=== PATIENT | female | born 1955 | race Caucasian/White ===

== ENCOUNTER 2016-06-13 07:10 | Inpatient (IN) | payer BC ==
[2016-06-13] VITALS (10 sets, daily range): BP systolic 110–139; BP diastolic 65–91
[~2016-06-13] VITALS: Ht 188 cm; Wt 79.5 kg
[2016-06-13] MEDS ORDERED: ADENOSINE 6 MG/2 ML VIAL IV ONE ×3 (07:21→08:00)
[2016-06-13] MEDS ORDERED: IV NORMAL SALINE 1000ML BAG 1,000 ML IV SCH (07:24)
[2016-06-13] MEDS ORDERED: DILTIAZEM IV PUSH 25 MG/5 ML VIAL. IVP ONE ×2 (07:30→08:30)
[2016-06-13] MEDS ORDERED: DILTIAZEM 125 MG in IV DEXTROSE 5% 100 ML IV ONE (07:30)
[2016-06-13 07:37] LABS: BASO # 0.1 x10^3/uL (0.0-0.2); BASO % 1 % (0-3); EOS % 2 % (0-3); HEMATOCRIT 43.4 % (36.0-47.0); HEMOGLOBIN 14.2 g/dL (12.0-15.5); LYMPH # 2.6 x10^3/uL (1.0-4.8); LYMPH % 35 % (24-48); MEAN CORPUSCULAR HEMOGLOBIN 31 pg (25-35); MEAN CORPUSCULAR HGB CONC 33 g/dL (31-37); MEAN CORPUSCULAR VOLUME 94 fL (79-100); MONO % 10 % (0-9); NEUT % 53 % (31-73); PLATELET COUNT 299 x10^3/uL (140-400); RED BLOOD COUNT 4.63 x10^6/uL (3.50-5.40); WHITE BLOOD COUNT 7.6 x10^3/uL (4.0-11.0)
--- NOTE | 2016-06-13 07:47 | PHYS DOC ---
Past Medical History Past Medical History: Depression, GERD, High Cholesterol, Hypertension, Other Additional Past Medical Histor: heart murmur Past Surgical History: Knee Replacement, Other Additional Past Surgical Histo: R knee, L rotator cuff Alcohol Use: Heavy Drug Use: None Adult General Chief Complaint Chief Complaint: MULTIPLE COMPLAINTS HPI HPI Patient is a 61 year old female who presents with palpitations, slight shortness of breath and lightheadedness since waking this morning around 6:15 AM. States she has never felt this way before. She denies recent illness, stimulant use, caffeine use, [id number] medication use other than ibuprofen. States she has not taken her home medications this morning. She denies chest pain, headache, vision changes, dizziness, nausea or vomiting, abdominal pain, diarrhea, dysuria, fever or chills. Review of Systems Review of Systems Constitutional: Denies fever or chills [] Eyes: Denies change in visual acuity, redness, or eye pain [] HENT: Denies nasal congestion or sore throat [] Respiratory: Denies cough [] Cardiovascular: No additional information not addressed in HPI [] GI: Denies abdominal pain, nausea, vomiting, bloody stools or diarrhea [] : Denies dysuria or hematuria [] Musculoskeletal: Denies back pain or joint pain [] Integument: Denies rash or skin lesions [] Neurologic: Denies headache, focal weakness or sensory changes [] Endocrine: Denies polyuria or polydipsia [] Current Medications Current Medications Current Medications Medications (Trade) Dose Ordered Sig/[facility] Start Time Stop Time Status Last Admin Dose Admin Adenosine 6 mg 6 mg 1X ONCE 06/13/16 07:30 06/13/16 07:31 DC 06/13/16 07:46 6 MG Diltiazem HCl (Cardizem) 20 mg 1X ONCE 06/13/16 07:30 06/13/16 07:31 DC 06/13/16 07:39 20 MG Diltiazem HCl 125 mg/Dextrose 125 ml @ 10 mls/hr 1X ONCE 06/13/16 07:30 06/13/16 19:59 06/13/16 07:42 10 MLS/HR Sodium Chloride (Iv Sodium Chloride 0.9% 1000ml Bag) 1,000 ml @ 1,000 mls/hr Q1H 06/13/16 07:24 06/13/16 08:23 DC 06/13/16 07:40 1,000 MLS/HR Allergies Allergies Allergies Coded Allergies Type Severity Reaction Last Updated Verified Sulfa (Sulfonamide Antibiotics) Allergy Intermediate hives 06/13/16 Yes Physical Exam Physical Exam Constitutional: Well developed, well nourished, no acute distress, non-toxic appearance. [] HENT: Normocephalic, atraumatic, bilateral external ears normal, oropharynx moist, nose normal. [] Eyes: PERRLA, EOMI. [] Neck: Normal range of motion, supple. [] Cardiovascular: Irregular tachycardia [] Lungs & Thorax: Bilateral breath sounds clear to auscultation [] Abdomen: Bowel sounds normal, soft, no tenderness. [] Skin: Warm, dry, no erythema, no rash. [] Back: Normal range of motion. [] Extremities: No tenderness, ROM intact, no edema, no palpable cord. [] Neurologic: Alert and oriented X 3, normal motor function, normal sensory function, no focal deficits noted. [] Psychologic: Affect normal, judgement normal, mood normal. [] Current Patient Data Vital Signs Vital Signs Date Time Temp Pulse Resp B/P Pulse Ox O2 Delivery O2 Flow Rate FiO2 06/13/16 07:15 97.1 211 18 150/113 99 Room Air 97.1 Lab Values Laboratory Tests Test 06/13/16 07:25 White Blood Count 7.6x10^3/uL (4.0-11.0) Red Blood Count 4.63x10^6/uL (3.50-5.40) Hemoglobin 14.2g/dL (12.0-15.5) Hematocrit 43.4% (36.0-47.0) Mean Corpuscular Volume 94fL (79-100) Mean Corpuscular Hemoglobin 31pg (25-35) Mean Corpuscular Hemoglobin Concent 33g/dL (31-37) Red Cell Distribution Width 13.0% (11.5-14.5) Platelet Count 299x10^3/uL (140-400) Neutrophils (%) (Auto) 53% (31-73) Lymphocytes (%) (Auto) 35% (24-48) Monocytes (%) (Auto) 10% (0-9) H Eosinophils (%) (Auto) 2% (0-3) Basophils (%) (Auto) 1% (0-3) Neutrophils # (Auto) 4.0x10^3uL (1.8-7.7) Lymphocytes # (Auto) 2.6x10^3/uL (1.0-4.8) Monocytes # (Auto) 0.8x10^3/uL (0.0-1.1) Eosinophils # (Auto) 0.1x10^3/uL (0.0-0.7) Basophils # (Auto) 0.1x10^3/uL (0.0-0.2) Sodium Level 140mmol/L (136-145) Potassium Level 3.9mmol/L (3.5-5.1) Chloride Level 102mmol/L (98-107) Carbon Dioxide Level 21mmol/L (21-32) Anion Gap 17 (6-14) H Blood Urea Nitrogen 11mg/dL (7-20) Creatinine 1.0mg/dL (0.6-1.0) Estimated GFR (Cockcroft-Gault) 56.0 Glucose Level 152mg/dL (70-99) H Calcium Level 9.7mg/dL (8.5-10.1) Magnesium Level 1.7mg/dL (1.8-2.4) L Troponin I Quantitative < 0.017ng/mL (0.000-0.055) FL-Hnq-S-Type Natriuretic Peptide 97pg/mL (0-124) Laboratory Tests 06/13/16 07:25 Laboratory Tests 06/13/16 07:25 EKG EKG EKG as interpreted by me as A. fib with rapid ventricular rate, rate 199, at 0719 EKG as interpreted by me as A. fib with rapid ventricular rate, rate 143, no ST- T changes, at 0747 Radiology/Procedures Radiology/Procedures Chest xray as interpreted by me with no acute cardiopulmonary disease process Course & Med Decision Making Course & Med Decision Making Pertinent Labs and Imaging studies reviewed. (See chart for details) Patient presented with A. fib with RVR that was in the 190s and 200s. Vagal maneuvers failed to slow the rate. Adenosine 6 mg IV followed by adenosine 12 mg IV failed to slow rate other than very brief episode. She was then given Cardizem bolus and placed on Cardizem drip for rate control. Symptoms improved with rate control. Workup is otherwise unremarkable. Discussed case with Dr. Calloway, who will admit. Discussed case with ESHA Bettencourt cardiology, who recommends addition of Digoxin IV 250mcg as her rate is still in 140s-150s. Dragon Disclaimer Dragon Disclaimer This electronic medical record was generated, in whole or in part, using a voice recognition dictation system. Critical Care Time Critical care time was 40 minutes exclusive of procedures. Departure Departure Impression: Primary Impression: Atrial fibrillation with RVR Disposition: ADMITTED INPATIENT Condition: CRITICAL Stef VITAL MD Jun 13, 2016 07:47
[2016-06-13 07:48] LABS: CALCIUM 9.7 mg/dL (8.5-10.1); POTASSIUM 3.9 mmol/L (3.5-5.1)
[2016-06-13 07:49] LABS: MAGNESIUM 1.7 mg/dL (1.8-2.4)
--- NOTE | 2016-06-13 08:12 | RAD ---
Portable chest, 06/13/2016: History: Chest pain, palpitations The heart size and pulmonary vascularity are normal. No pulmonary infiltrates are seen. There is no evidence of pleural fluid. IMPRESSION: No acute cardiopulmonary abnormality is detected.
--- NOTE | 2016-06-13 08:27 | EKG ---
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
[2016-06-13] MEDS ORDERED: ONDANSETRON PF 4 MG/2 ML VIAL. IV PRN ×2 (08:30→10:35)
[2016-06-13] MEDS ORDERED: ACETAMINOPHEN 325 MG TABLET. PO PRN (08:30)
[2016-06-13] MEDS ORDERED: DIGOXIN 500 MCG/2 ML AMPUL. IV ONE (09:15)
--- NOTE | 2016-06-13 09:24 | ACF ---
Admit Criteria Forms Admit Criteria Forms Admit Criteria Forms ATRIAL FIBRILLATION Clinical Indications for Admission to Inpatient Care (Place 'X' for any and all applicable criteria): Admission indicated for ANY ONE of the following(1)(2)(3)(4)(5) : [ ]I. Myocardial ischemia [ ]II. Dyspnea or hypoxemia [ ]III. Hemodynamic instability [ ]IV. Heart failure (e.g., pulmonary edema) (7) [X]V. New-onset (less than 48 hours) atrial fibrillation with high risk for causing complications secondary to comorbidities (eg, symptomatic heart failure ) [ ]. Altered mental status [ ]VII. Syncope [ ]VIII. Patient has implantable cardioverter defibrillator that has fired more than once within past 24hr or needs immediate adjustment of settings that cannot be done other than in inpatient setting. (8) [ ]IX. Suspected accessory pathway (e.g., Dlffy-Psmidzhup-Xvmjy syndrome) on ECG [ ]X. Recent systemic thromboembolism (eg, stroke) [ ]XI. Medication toxicity (e.g., digitalis) causing arrhythmia(9) [ ]XII. Underlying medical condition that necessitates inpatient care (e.g., thyrotoxicosis, pneumonia) (10) [ ]XIII. Continuous ECG monitoring is required for condition causing arrhythmia (e.g., severe hyperkalemia, hypokalemia, acid-base disturbance).(11)(12)(13) [ ]XIV. Initiation of antiarrhythmic drug therapy is needed in patient at high risk of adverse effects as indicated by ANY ONE of the following: [ ]a) Significant structural heart disease (e.g., reduced ejection fraction, congenital heart disease, valvular heart disease) [ ]b) Prolonged QT interval [ ]c) Underlying sinus node or atrioventricular conduction disturbances [ ]d) Need for treatment with antiarrhythmic drugs that have significant proarrhythmic potential (e.g., dofetilide, sotalol, procainamide) [ ]e) Patient whose sinus rhythm has never been observed on ECG [ ]XV. Intolerable symptoms despite optimal outpatient treatment [ ]XVI. Elective or urgent cardioversion that cannot be performed on outpatient basis or during observation care. [A] (Use also Atrial Fibrillation: Observation Care ) as appropriate.(14) [ ]XVII.Contraindications and/or Inappropriate clinical situations for Observational Care in patients with Atrial Fibrillation, when ANY ONE of the following is required: [ ]a) Patient with High risk of cardiac embolism (e.g, patients with previous cardiac embolism, LVEF < 40%, age >75 and patients with prosthetic valve) 18 [ ]b) Patient with Moderate risk including DM patient, CAD and patient aged 65-75 18 [ ]c) Patient with any change in cardiac biomarker especially troponin should be managed as high risk in an inpatient setting 19 [ ]d) Physician judgement irrespective of ECG and other diagnostic findings 20 [ ]XVIII.General contraindications and/or Inappropriate clinical situations for Observational Care in patients with Atrial Fibrillation, when ANY ONE of the following is required: [ ]a) Prediction of prolongation of LOS based on ANY ONE of the following may be considered as a contraindication for observational care 2, 3, 4, 5, 6, 7, 8, 9, 10, 11 [ ]i) Age > 65 yrs. [ ]ii) Patient arriving by ambulance [ ]iii) Patient with high acuity [ ]iv) Patient requiring vital sign monitoring [ ]v) Patient on IV medication [ ]b) Systolic blood pressures 180mmHg 3,12 [ ]c) Patient with altered mental status including delirium and other alteration of consciousness3 [ ]d) Patient whose discharge disposition will be to a custodial home or rehabilitation home should not be managed in Emergency Department Observation Unit. CMS rule requires 3 days hospital stay before such placement.3,13 [ ]e) Patient with failure to thrive due to broad array of etiologies 3,16,17 [ ]f) Inability to ambulate 3,14 Extended stay beyond goal length of stay may be needed for (1)(25)(26): [ ]a) Unstable comorbidities [ ]b) Persistently uncontrolled atrial fibrillation or other arrhythmias [ ]c) Acute thromboembolic event (e.g., stroke, limb ischemia) [ ]d) Need for inpatient attainment of full anticoagulation The original [employer] content created by [employer] has been revised. The portions of the content which have been revised are identified through the use of italic text or in bold, and [employer] has neither reviewed nor approved the modified material. All other unmodified content is copyright [employer]. Please see references footnoted in the original [employer] edition 2015 AROLDO ALAMO Jun 13, 2016 09:24
--- NOTE | 2016-06-13 09:31 | PDOC2 ---
CARLEE LOFTON FISCAL ASSISTANT 06/13/16 0931: CARDIAC CONSULT DATE OF CONSULT Date of Consult DATE: 06/13/16 TIME: 09:29 REASON FOR CONSULT Reason for Consult: AFIB with RVR REFERRING PHYSICIAN Referring Physician: Dr. Rangel SOURCE Source: Chart review, Patient HISTORY OF PRESENT ILLNESS HISTORY OF PRESENT ILLNESS This is a 61 yo female who presented with complaints of shortness of breath and palpitations. Patient reports palpitations began upon awakening this morning. Denies any chest pain, diaphoresis, n/v, LE edema, orthopnea, TERRELL, or recent illness/fevers. Reports she began to feel lightheaded, anxious, and weak ; knew something was wrong. Drove herself to emergency room. Noted in AFIB with RVR upon arrival. Given adenosine 6mg followed by additional 12mg without relief. Cardizem 20mg bolus x 2 and start on Cardizem gtt. Rate remained elevated; Digoxin IV bolus given. Rate presently 120-160; patient asymptomatic. PAST MEDICAL HISTORY Cardiovascular: HTN, Hyperlipidemia, Other (murmur ) GI: GERD Heme/Onc: No pertinent hx Hepatobiliary: No pertinent hx Psych: No pertinent hx Musculoskeletal: Osteoarthritis Rheumatologic: No pertinent hx Infectious disease: No pertinent hx ENT: No pertinent hx Renal/: No pertinent hx Endocrine: No pertinent hx Dermatology: No pertinent hx PAST SURGICAL HISTORY Past Surgical History: Total knee replacement (right ), Other (left rotator cuff sx) FAMILY HISTORY Family History: Coronary Artery Disease, Hypertension SOCIAL HISTORY Smoke: No ALCOHOL: none Drugs: None Lives: with Family CURRENT MEDICATIONS CURRENT MEDICATIONS Current Medications Medications (Trade) Dose Ordered Sig/Dianna Route PRN Reason Start Time Stop Time Status Last Admin Dose Admin Diltiazem HCl (Cardizem) 20 mg 1X ONCE IVP 06/13/16 07:30 06/13/16 07:31 DC 06/13/16 07:39 Adenosine 6 mg 6 mg 1X ONCE IV 06/13/16 07:30 06/13/16 07:31 DC 06/13/16 07:46 Diltiazem HCl 125 mg/Dextrose 125 ml @ 10 mls/hr 1X ONCE IV 06/13/16 07:30 06/13/16 19:59 06/13/16 07:42 Sodium Chloride (Iv Sodium Chloride 0.9% 1000ml Bag) 1,000 ml @ 1,000 mls/hr Q1H IV 06/13/16 07:24 06/13/16 08:23 DC 06/13/16 07:40 Adenosine (Adenocard) 12 mg 1X ONCE IV 06/13/16 08:00 06/13/16 08:01 DC 06/13/16 07:50 Diltiazem HCl (Cardizem) 20 mg 1X ONCE IVP 06/13/16 08:30 06/13/16 08:31 DC 06/13/16 08:35 ALLERGIES ALLERGIES: Coded Allergies: Sulfa (Sulfonamide Antibiotics) (Verified Allergy, Intermediate, hives, ) ROS Review of System 14 point ROS conducted with pertinent positives noted above in HPI PHYSICAL EXAM General: Alert, Oriented X3, Cooperative, No acute distress HEENT: Atraumatic, Mucous membr. moist/pink Lungs: Clear to auscultation, Normal air movement Heart: Normal S1, Normal S2, Other (2/6 systolic murmur. Tele AFIB rate 120- 160. ) Abdomen: Soft, No tenderness Extremities: No edema, Normal pulses Skin: No significant lesion Neuro: Normal speech, Sensation intact Psych/Mental Status: Mental status NL, Mood NL MUSCULOSKELETAL: Osteoarthritic changes both hands VITALS VITALS Vital Signs Date Time Temp Pulse Resp B/P Pulse Ox O2 Delivery O2 Flow Rate FiO2 06/13/16 08:35 163 157/85 06/13/16 07:15 97.1 18 99 Room Air 97.1 LABS Lab: Laboratory Tests Test 06/13/16 07:25 White Blood Count 7.6x10^3/uL (4.0-11.0) Red Blood Count 4.63x10^6/uL (3.50-5.40) Hemoglobin 14.2g/dL (12.0-15.5) Hematocrit 43.4% (36.0-47.0) Mean Corpuscular Volume 94fL (79-100) Mean Corpuscular Hemoglobin 31pg (25-35) Mean Corpuscular Hemoglobin Concent 33g/dL (31-37) Red Cell Distribution Width 13.0% (11.5-14.5) Platelet Count 299x10^3/uL (140-400) Neutrophils (%) (Auto) 53% (31-73) Lymphocytes (%) (Auto) 35% (24-48) Monocytes (%) (Auto) 10% (0-9) Eosinophils (%) (Auto) 2% (0-3) Basophils (%) (Auto) 1% (0-3) Neutrophils # (Auto) 4.0x10^3uL (1.8-7.7) Lymphocytes # (Auto) 2.6x10^3/uL (1.0-4.8) Monocytes # (Auto) 0.8x10^3/uL (0.0-1.1) Eosinophils # (Auto) 0.1x10^3/uL (0.0-0.7) Basophils # (Auto) 0.1x10^3/uL (0.0-0.2) Sodium Level 140mmol/L (136-145) Potassium Level 3.9mmol/L (3.5-5.1) Chloride Level 102mmol/L (98-107) Carbon Dioxide Level 21mmol/L (21-32) Anion Gap 17 (6-14) Blood Urea Nitrogen 11mg/dL (7-20) Creatinine 1.0mg/dL (0.6-1.0) Estimated GFR (Cockcroft-Gault) 56.0 Glucose Level 152mg/dL (70-99) Calcium Level 9.7mg/dL (8.5-10.1) Magnesium Level 1.7mg/dL (1.8-2.4) Troponin I Quantitative < 0.017ng/mL (0.000-0.055) TV-Dbo-F-Type Natriuretic Peptide 97pg/mL (0-124) ASSESSMENT/PLAN ASSESSMENT/PLAN 1. Atrial fibrillation with RVR 2. Hypertension 3. Hyperlipidemia 4. Hypomagnesemia 5. GERD Recommendations Obtain echo check TSH, lipids replace MG Lovenox for stroke prophylaxis Given persistent RVR despite aggressive medical therapy, consider PAULO with CV- will d/w primary cardiology. Further recommendations pending diagnostics. Problems: INA SPEAR MD 06/14/16 0020: CARDIAC CONSULT ALLERGIES ALLERGIES: Coded Allergies: Sulfa (Sulfonamide Antibiotics) (Verified Allergy, Intermediate, hives, ) ASSESSMENT/PLAN ASSESSMENT/PLAN Late entry for 06/13/2016 Pt. seen and examined. Agree with above RUNNER OUT note. 61 y.o with persistent rapid afib. On exam she is hemodynamically stable. Labs/meds reviewed. In light of persistent tachy at HR > 150 despite high dose rate control agents, after discussion of risks/benefits, patient was cardioverted to SR after PAULO confirmed no evidence of ÁNGELA thrombus. Eliquis for short term 3 month stroke prophylaxis. outpt event monitor. Likely DC in a.m. from CV perspective if no recurrence of afib. Problems: CARLEE LOFTON APRN Jun 13, 2016 09:31 INA SPEAR MD Jun 14, 2016 00:20
--- NOTE | 2016-06-13 10:41 | EKG ---
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
[2016-06-13] MEDS ORDERED: CITA40TA12 PO (10:57)
[2016-06-13] MEDS ORDERED: IBUP800T2 PO (10:57)
[2016-06-13] MEDS ORDERED: OMEP40CA5 PO (10:57)
[2016-06-13] MEDS ORDERED: LISI-334 PO (10:57)
[2016-06-13] MEDS ORDERED: SIMV40TA3 PO (10:57)
[2016-06-13] MEDS ORDERED: MAGNESIUM SULFATE 2GM 50 ML IV ONE (11:00)
[2016-06-13] MEDS ORDERED: ENOXAPARIN ** NOTE DOSE ** SYRINGE SQ STA (11:47)
--- NOTE | 2016-06-13 11:59 | CARD ---
APPROVED REPORT EXAM: Two-dimensional and M-mode echocardiogram with Doppler and color Doppler. Other Information Quality : Good Rhythm : Atrial Fibrillation INDICATION New onset- Atrial fibrillation RISK FACTORS Hypertension 2D DIMENSIONS RVDd2.5 (2.9-3.5cm)Left Atrium(2D)4.0 (1.6-4.0cm) IVSd1.2 (0.7-1.1cm)Aortic Root(2D)2.7 (2.0-3.7cm) LVDd3.5 (3.9-5.9cm)LVOT Diameter2.4 (1.8-2.4cm) PWd0.7 (0.7-1.1cm)LVDs2.4 (2.5-4.0cm) FS (%) 31.0 %SV31.3 ml LVEF(%)59.7 (>50%) Aortic Valve AoV Peak Hebert.177.1cm/sAoV VTI25.7cm AO Peak GR.12.5mmHgLVOT Peak Hebert.144.2cm/s AO Mean GR.7mmHgAVA (VMAX)3.73cm2 Mitral Valve MV E Peak Gr.7mmHg Pulmonary Valve PV Peak Cceiysya849.1cm/s Tricuspid Valve TR P. [id number]/sTR Peak Gr.45mmHg LEFT VENTRICLE The left ventricle is normal size. There is mild concentric left ventricular hypertrophy. The left ve ntricular systolic function is normal and the ejection fraction is within normal range. The Ejection Fraction is 60-65%. There is normal LV segmental wall motion. The left ventricular diastolic function was not assessed due to atrial fibrillation. No left ventricle thrombus noted on this study. RIGHT VENTRICLE The right ventricle is normal size. There is normal right ventricular wall thickness. The right ventr icular systolic function is normal. ATRIA The left atrium is mildly dilated. The right atrium size is normal. The interatrial septum is intact with no evidence for an atrial septal defect or patent foramen ovale as noted on 2-D or Doppler imagi ng. AORTIC VALVE The aortic valve is mildly sclerotic. The aortic valve is trileaflet. Doppler and Color Flow revealed no significant aortic regurgitation. There is no significant aortic valvular stenosis. MITRAL VALVE Mitral annular calcification is mild. The mitral valve leaflets are thickened. There is no evidence o f mitral valve prolapse. There is no mitral valve stenosis. Doppler and Color Flow revealed no mitral valve regurgitation noted. TRICUSPID VALVE Doppler and Color Flow revealed moderate tricuspid regurgitation. The pulmonary artery systolic press ure is estimated at 50 mmHg. PULMONIC VALVE The pulmonary valve is normal in structure and function. Doppler and Color Flow revealed no pulmonic valvular regurgitation. There is no pulmonic valvular stenosis. GREAT VESSELS The aortic root is normal in size. The ascending aorta is normal in size. The pulmonary artery is nor mal. The IVC is normal in size and collapses >50% with inspiration. PERICARDIAL EFFUSION There is no evidence of significant pericardial effusion. Critical Notification Critical Value: No <Conclusion> The left ventricle is normal size. The left ventricular systolic function is normal and the ejection fraction is within normal range. The Ejection Fraction is 60-65%. There is mild concentric left ventricular hypertrophy. There is no significant aortic valvular stenosis. Doppler and Color Flow revealed no significant aortic regurgitation. Doppler and Color Flow revealed no mitral valve regurgitation noted. Doppler and Color Flow revealed moderate tricuspid regurgitation. The pulmonary artery systolic pressure is estimated at 50 mmHg.
[2016-06-13] MEDS ORDERED: 0.9 % SODIUM CHLORIDE 10 ML DISP.SYRIN. IV PRN ×2 (12:00)
[2016-06-13] MEDS ORDERED: BENZOCAINE ONE 20% MUCOSAL SPRAY. MM (12:00)
[2016-06-13] MEDS ORDERED: LIDOCAINE 2% TOPICAL JELLY 5GM TUBE. TP ONE (12:00)
[2016-06-13] MEDS ORDERED: LIDOCAINE 2% VISCOUS 15 ML SOLUTION. MM ONE (12:00)
[2016-06-13 12:20] LABS: CHOLESTEROL/HDL RATIO 2.3
[2016-06-13] MEDS ORDERED: LIDOCAINE 2% 100 MG/5 ML DISP.SYRIN. ONE (12:33)
[2016-06-13] MEDS ORDERED: PROPOFOL 40 ML IV ONE (12:33)
[2016-06-13] MEDS ORDERED: BENZOCAINE/MENTHOL LOZENGE. PO PRN (13:15)
[2016-06-13] MEDS ORDERED: ANTI-COAG MONITOR BY PHARMACY. MC PRN (14:45)
--- NOTE | 2016-06-13 14:53 | PDOC1 ---
History and Physical Date of Admission Date of Admission DATE: 06/13/16 TIME: 14:47 Identification/Chief Complaint Chief Complaint heart fluttering Source Source: Caregiver, Chart review, Patient History of Present Illness History of Present Illness Very plaant 61 y/o female with no significant past medical hx, felt her heart racing, no real CP. Went to ER found to have HR as high as 200s, initially got adenosine for SVT which did not resolve, then assessed to have atrial fib RVR , started on cardizem gtt at ER, seen by cards and initially had transthoracic echo which was ok, eventually had PAULO today all in the last 6 hrs and no clot detected hence electrically cardioverted and is now NSR at70s with cardizem gtt only at 5 mgs in ICU and feeling much better and pleased with her course and rapid action of cards. Mag slightly low 1.7 - I have ordered replacement, TSh is normal,. Never happened before, not heavy caffeine drinker. at bedside Past Medical History Cardiovascular: HTN, Hyperlipidemia, Other (murmur ) GI: GERD Heme/Onc: No pertinent hx Hepatobiliary: No pertinent hx Psych: No pertinent hx Musculoskeletal: Osteoarthritis Rheumatologic: No pertinent hx Infectious disease: No pertinent hx ENT: No pertinent hx Renal/: No pertinent hx Endocrine: No pertinent hx Dermatology: No pertinent hx Past Surgical History Past Surgical History: Total knee replacement (right ), Other (left rotator cuff sx) Family History Family History: Coronary Artery Disease, Hypertension Social History Smoke: No ALCOHOL: none Drugs: None Current Problem List Problem List Problems Medical Problems: (1) Atrial fibrillation with RVR Status: Acute Problems: Current Medications Current Medications Current Medications Diltiazem HCl (Cardizem) 20 mg 1X ONCE IVP Last administered on 06/13/16 07: 39; Start 06/13/16 at 07:30; Stop 06/13/16 at 07:31; Status DC Adenosine 6 mg 6 mg 1X ONCE IV Last administered on 06/13/16 07:46; Start at 07:30; Stop 06/13/16 at 07:31; Status DC Diltiazem HCl 125 mg/Dextrose 125 ml @ 10 mls/hr 1X ONCE IV Last administered on 06/13/16 07:42; Start 06/13/16 at 07:30; Stop 06/13/16 at 14:26 ; Status DC Sodium Chloride (Iv Sodium Chloride 0.9% 1000ml Bag) 1,000 ml @ 1,000 mls/hr Q1H IV Last administered on 06/13/16 07:40; Start 06/13/16 at 07:24; Stop at 08:23; Status DC Adenosine (Adenocard) 12 mg 1X ONCE IV Last administered on 06/13/16 07:50; Start 06/13/16 at 08:00; Stop 06/13/16 at 08:01; Status DC Diltiazem HCl (Cardizem) 20 mg 1X ONCE IVP Last administered on 06/13/16 08: 35; Start 06/13/16 at 08:30; Stop 06/13/16 at 08:31; Status DC Ondansetron HCl (Zofran) 4 mg PRN Q8HRS PRN IV NAUSEA/VOMITING; Start 06/13/16 at 08:30; Stop 06/13/16 at 10:36; Status DC Acetaminophen (Tylenol) 650 mg PRN Q4HRS PRN PO FEVER; Start 06/13/16 at 08:30 ; Stop 06/14/16 at 08:29 Digoxin (Lanoxin) 250 mcg 1X ONCE IV Last administered on 06/13/16 09:32; Start 06/13/16 at 09:15; Stop 06/13/16 at 09:16; Status DC Adenosine (Adenocard) 6 mg STK-MED ONCE IV ; Start 06/13/16 at 07:21; Stop 06/13 at 10:08; Status DC Ondansetron HCl 4 mg 4 mg PRN Q6HRS PRN IV NAUSEA/VOMITING; Start 06/13/16 at 10:35 Magnesium Sulfate/ Dextrose (Magnesium Sulfate PREMIX 2GM) 50 ml @ 25 mls/hr 1X ONCE IV Last administered on 06/13/16 11:00; Start 06/13/16 at 11:00; Stop 06/13/16 at 12:59; Status DC Enoxaparin Sodium (Lovenox 120mg Syringe) 120 mg 1X STAT SQ Last administered on 06/13/16 11:59; Start 06/13/16 at 11:47; Stop 06/13/16 at 11:50; Status DC Sodium Chloride (Normal Saline Flush) 10 ml QSHIFT PRN IV AFTER MEDS AND BLOOD DRAWS; Start 06/13/16 at 12:00 Sodium Chloride (Normal Saline Flush) 10 ml QSHIFT PRN IV AFTER MEDS AND BLOOD DRAWS; Start 06/13/16 at 12:00 Lidocaine HCl (Xylocaine 2% Topical 5gm Tube) 1 hugh 1X ONCE TP ; Start at 12:00; Stop 06/13/16 at 12:01; Status DC Lidocaine HCl (Viscous Lidocaine) 15 ml 1X ONCE MM ; Start 06/13/16 at 12:00; Stop 06/13/16 at 12:01; Status DC Benzocaine (Hurricaine One) 1 spray 1X ONCE MM ; Start 06/13/16 at 12:00; Stop 06/13/16 at 12:01; Status DC Lidocaine HCl 100 mg 100 mg STK-MED ONCE .ROUTE ; Start 06/13/16 at 12:33; Stop 06/13/16 at 12:34; Status DC Propofol (Diprivan) 40 ml @ As Directed STK-MED ONCE IV ; Start 06/13/16 at 12: 33; Stop 06/13/16 at 12:34; Status DC Throat Lozenges (Cepacol Sore Throat Lozenge) 1 howard PRN Q2HRS PRN PO SORE THROAT Last administered on 06/13/16t 13:43; Start 06/13/16 at 13:15 Apixaban (Eliquis) 5 mg BID PO ; Start 06/13/16 at 21:00 Metoprolol Tartrate (Lopressor) 12.5 mg BID PO ; Start 06/13/16 at 14:30 Info (Anti-Coagulation Monitoring By Pharmacy) 1 each PRN DAILY PRN MC SEE COMMENTS; Start 06/13/16 at 14:45 Active Scripts Active Reported Simvastatin 40 Mg Tablet 1 Tab PO QHS Omeprazole 40 Mg Capsule. 1 Cap PO DAILY Lisinopril 20 Mg Tablet 1 Tab PO DAILY Ibuprofen 800 Mg Tablet 800 Mg PO BID Celexa (Citalopram Hydrobromide) 40 Mg Tablet 1 Tab PO DAILY Allergies Allergies: Coded Allergies: Sulfa (Sulfonamide Antibiotics) (Verified Allergy, Intermediate, hives, ) ROS General: No: Appetite, Chills, Fatigue, Malaise, Night Sweats, Other PSYCHOLOGICAL ROS: No: Anxiety, Behavioral Disorder, Concentration difficultie , Decreased libido, Depression, Disorientation, Hallucinations, Hostility, Irritablity, Memory difficulties, Mood Swings, Obsessive thoughts, Other, Physical abuse, Sexual abuse, Sleep disturbances, Suicidal ideation Eyes: No Blurry vision, No Decreased vision, No Double vision, No Dry eyes, No Excessive tearing, No Eye Pain, No Itchy Eyes, No Loss of vision, No Other, No Photophobia, No Scotomata, No Uses contacts, No Uses glasses HEENT: No: Epistaxis, Heacaches, Hearing change, Nasal congestion, Nasal discharge, Oral lesions, Other, Sinus pain, Sneezing, Snoring, Sore Throat, Tinnitus, Vertigo, Visual Changes, Vocal changes ALLERGY AND IMMUNOLOGY: No: Hives, Insect Bite Sensitivity, Itchy/Watery Eyes, Nasal Congestion, Other, Post Nasal Drip, Seasonal Allergies Hematological and Lymphatic: No: Bleeding Problems, Blood Clots, Blood Transfusions, Brusing, Night Sweats, Other, Pallor, Swollen Lymph Nodes ENDOCRINE: No: Breast Changes, Galactorrhea, Hair Pattern Changes, Hot Flashes , Malaise/lethargy, Mood Swings, Other, Palpitations, Polydipsia/polyuria, Skin Changes, Temperature Intolerance, Unexpected Weight Changes Breast: No New/Changing Breast Lumps, No Nipple changes, No Nipple discharge, No Other Respiratory: No: Cough, Hemoptysis, Orthopnea, Other, Pleuritic Pain, SOB with excertion, Shortness of breath, Sputum Changes, Stridor, Tachypnea, Wheezing Cardiovascular: No Chest Pain, No Edema, No Lt Headedness, No Orthopnea, No Other, No Palpitations, No Paroxysmal Noc. Dyspnea Gastrointestinal: No Abdominal Pain, No Constipation, No Diarrhea, No Hematochezia, No Melena, No Nausea, No Other, No Vomiting Genitourinary: No , No , No , No , No , No , No , No Discharge, No Dysuria, No Flank Pain, No Frequency, No Hematuria, No Incontinence, No Other, No Pain, No Retention, No Urgency Musculoskeletal: No Gait Disturbance, No Joint Pain, No Joint Stiffness, No Joint Swelling, No Muscle Pain, No Muscular Weakness, No Other, No Pain In:, No Swelling In: Neurological: No Behavorial Changes, No Bowel/Bladder ControlChng, No Confusion , No Dizziness, No Gait Disturbance, No Headaches, No Impaired Coord/balance, No Memory Loss, No Numbness/Tingling, No Other, No Seizures, No Speech Problems , No Tremors, No Visual Changes, No Weakness Skin: No Acne, No Dry Skin, No Eczema, No Hair Changes, No Lumps, No Mole Changes, No Mottling, No Nail Changes, No Other, No Pruritus, No Rash, No Skin Lesion Changes Physical Exam General: Alert, Oriented X3, Cooperative, No acute distress HEENT: Atraumatic, PERRLA Lungs: Clear to auscultation Heart: S1S2, RRR Cardiovascular: S1 Breasts: Normal Abdomen: Normal bowel sounds, Soft, No tenderness, No hepatosplenomegaly, No masses Rectal Exam: not examined PELVIC: Nml ext genitalia Extremities: No clubbing, No cyanosis, No edema, Normal pulses, No tenderness/ swelling Skin: No rashes, No breakdown, No significant lesion Neuro: Normal gait, Normal speech, Strength at 5/5 X4 ext, Normal tone, Sensation intact, Cranial nerves 3-12 NL, Reflexes 2+ Psych/Mental Status: Mental status NL, Mood NL Vitals Vitals Vital Signs Date Time Temp Pulse Resp B/P Pulse Ox O2 Delivery O2 Flow Rate FiO2 06/13/16 13:00 Room Air 06/13/16 09:50 118 18 144/66 97 06/13/16 07:15 97.1 97.1 Labs Labs Laboratory Tests Test 06/13/16 07:25 White Blood Count 7.6x10^3/uL (4.0-11.0) Red Blood Count 4.63x10^6/uL (3.50-5.40) Hemoglobin 14.2g/dL (12.0-15.5) Hematocrit 43.4% (36.0-47.0) Mean Corpuscular Volume 94fL (79-100) Mean Corpuscular Hemoglobin 31pg (25-35) Mean Corpuscular Hemoglobin Concent 33g/dL (31-37) Red Cell Distribution Width 13.0% (11.5-14.5) Platelet Count 299x10^3/uL (140-400) Neutrophils (%) (Auto) 53% (31-73) Lymphocytes (%) (Auto) 35% (24-48) Monocytes (%) (Auto) 10% (0-9) Eosinophils (%) (Auto) 2% (0-3) Basophils (%) (Auto) 1% (0-3) Neutrophils # (Auto) 4.0x10^3uL (1.8-7.7) Lymphocytes # (Auto) 2.6x10^3/uL (1.0-4.8) Monocytes # (Auto) 0.8x10^3/uL (0.0-1.1) Eosinophils # (Auto) 0.1x10^3/uL (0.0-0.7) Basophils # (Auto) 0.1x10^3/uL (0.0-0.2) Sodium Level 140mmol/L (136-145) Potassium Level 3.9mmol/L (3.5-5.1) Chloride Level 102mmol/L (98-107) Carbon Dioxide Level 21mmol/L (21-32) Anion Gap 17 (6-14) Blood Urea Nitrogen 11mg/dL (7-20) Creatinine 1.0mg/dL (0.6-1.0) Estimated GFR (Cockcroft-Gault) 56.0 Glucose Level 152mg/dL (70-99) Calcium Level 9.7mg/dL (8.5-10.1) Magnesium Level 1.7mg/dL (1.8-2.4) Troponin I Quantitative < 0.017ng/mL (0.000-0.055) ZJ-Bai-A-Type Natriuretic Peptide 97pg/mL (0-124) Triglycerides Level 145mg/dL (0-150) Cholesterol Level 218mg/dL (0-200) LDL Cholesterol, Calculated 96mg/dL (0-100) VLDL Cholesterol, Calculated 29mg/dL (0-40) HDL Cholesterol 93mg/dL (40-60) Cholesterol/HDL Ratio 2.3 Thyroid Stimulating Hormone (TSH) 2.759uIU/mL (0.358-3.74) Laboratory Tests Test 06/13/16 07:25 White Blood Count 7.6x10^3/uL (4.0-11.0) Red Blood Count 4.63x10^6/uL (3.50-5.40) Hemoglobin 14.2g/dL (12.0-15.5) Hematocrit 43.4% (36.0-47.0) Mean Corpuscular Volume 94fL (79-100) Mean Corpuscular Hemoglobin 31pg (25-35) Mean Corpuscular Hemoglobin Concent 33g/dL (31-37) Red Cell Distribution Width 13.0% (11.5-14.5) Platelet Count 299x10^3/uL (140-400) Neutrophils (%) (Auto) 53% (31-73) Lymphocytes (%) (Auto) 35% (24-48) Monocytes (%) (Auto) 10% (0-9) Eosinophils (%) (Auto) 2% (0-3) Basophils (%) (Auto) 1% (0-3) Neutrophils # (Auto) 4.0x10^3uL (1.8-7.7) Lymphocytes # (Auto) 2.6x10^3/uL (1.0-4.8) Monocytes # (Auto) 0.8x10^3/uL (0.0-1.1) Eosinophils # (Auto) 0.1x10^3/uL (0.0-0.7) Basophils # (Auto) 0.1x10^3/uL (0.0-0.2) Sodium Level 140mmol/L (136-145) Potassium Level 3.9mmol/L (3.5-5.1) Chloride Level 102mmol/L (98-107) Carbon Dioxide Level 21mmol/L (21-32) Anion Gap 17 (6-14) Blood Urea Nitrogen 11mg/dL (7-20) Creatinine 1.0mg/dL (0.6-1.0) Estimated GFR (Cockcroft-Gault) 56.0 Glucose Level 152mg/dL (70-99) Calcium Level 9.7mg/dL (8.5-10.1) Magnesium Level 1.7mg/dL (1.8-2.4) Troponin I Quantitative < 0.017ng/mL (0.000-0.055) FM-Ygn-M-Type Natriuretic Peptide 97pg/mL (0-124) Triglycerides Level 145mg/dL (0-150) Cholesterol Level 218mg/dL (0-200) LDL Cholesterol, Calculated 96mg/dL (0-100) VLDL Cholesterol, Calculated 29mg/dL (0-40) HDL Cholesterol 93mg/dL (40-60) Cholesterol/HDL Ratio 2.3 Thyroid Stimulating Hormone (TSH) 2.759uIU/mL (0.358-3.74) VTE Prophylaxis Ordered VTE Prophylaxis Devices: Yes VTE Pharmacological Prophylaxi: Yes Assessment/Plan Assessment/Plan 1. New onset atrial fib RVR s/p PAULO with electrical cardioversion (2.21), now nSR 2. HTn,controlled 3. Hypomagnesemia PLAn: Follow cards recs Replace mag ICU overnight Possibel t/o ICU red Gooden RN and pt and JOVANA WEINER MD Jun 13, 2016 14:53
[2016-06-13] MEDS: METOPROLOL TART IMMED RELEASE 25 MG TABLET PO SCH ×2 (16:41→20:16)
[2016-06-13] MEDS: APIXABAN 5 MG TABLET. PO SCH (20:14)
[2016-06-13] MEDS ORDERED: ZOLPIDEM 5 MG TABLET. PO ONE (23:30)
[2016-06-14 04:10] VITALS: BP 110/55
[2016-06-14 07:26] VITALS: BP 123/71
[2016-06-14] MEDS: APIXABAN 5 MG TABLET. PO SCH (08:41)
[2016-06-14] MEDS: METOPROLOL TART IMMED RELEASE 25 MG TABLET PO SCH (08:42)
[2016-06-14] MEDS ORDERED: APIX5TAB PO (10:14)
[2016-06-14] MEDS ORDERED: METO25TA9 PO (10:15)
[2016-06-14 10:17] VITALS: BP 119/67
--- NOTE | 2016-06-14 10:17 | PDOC ---
CARLEE LOFTON APRN 06/14/16 1017: CARDIO Progress Notes Date and Time Date of Service 06/14/16 Time of Evaluation 0945 Subjective Subjective: No Chest Pain, No shortness of breath, No Palpitations, No Dizziness Comments: ready to go home Vitals Vitals Vital Signs Date Time Temp Pulse Resp B/P Pulse Ox O2 Delivery O2 Flow Rate FiO2 06/14/16 08:42 77 123/71 06/14/16 08:00 Room Air 06/14/16 07:26 98.6 18 96 98.6 06/13/16 12:30 2.0 Weight Weight [ ] Input and Output Intake and Output Intake and Output 06/14/16 07:00 Intake Total 1800 ml Output Total 1350 ml Balance 450 ml Intake Oral 450 ml IV Total 1050 ml Other 300 ml Output Urine Total 1350 ml # Voids 4 Laboratory Labs Laboratory Tests Test 06/13/16 10:10 Nasal Screen MRSA (PCR) Negative (Negative) Physical Exam HEENT: Neck Supple W Full Motion Chest: Symmetric LUNGS: Clear to Auscultation Heart: S1S2, RRR, no murmurs Abdomen: Soft N/T Extremities: No Edema, No Calf Tenderness Neurology: alert, oriented, follow commands Assessment Assessment 1. Atrial fibrillation with RVR 2. Hypertension 3. Hyperlipidemia 4. Hypomagnesemia 5. GERD Recommendations No acute events overnight; remains in SR with controlled rate. Continue metoprolol for rate control Eliquis x 3 months for stroke prophylaxis. Event monitor May discharge from CV standpoint and f/u in our office in 4 weeks as scheduled. INA SPEAR MD 06/14/16 1822: CARDIO Progress Notes Plan Plan Patient seen and examined. Agree with above nurse practitioner note. No acute events overnight. Stable in sinus rhythm overnight. Normal exam. Feeling well today. Labs and medications reviewed. Otherwise recommendations as above. Will follow up in clinic in 4-6 weeks after an event monitor. Thank you for this consultation. CARLEE LOFTON APRN Jun 14, 2016 10:17 INA SPEAR MD Jun 14, 2016 18:22
--- NOTE | 2016-06-14 12:43 | PDOC3 ---
Discharge Summary Visit Information Date of Admission: Jun 13, 2016 Date of Discharge: Jun 14, 2016 Admitting Diagnosis Comment: 1. New onset atrial fib RVR s/p PAULO with electrical cardioversion (2.21), now nSR 2. HTn,controlled 3. Hypomagnesemia Final Diagnosis Problems Medical Problems: (1) Atrial fibrillation with RVR Status: Acute Brief Hospital Course Allergies Allergies Coded Allergies Type Severity Reaction Last Updated Verified Sulfa (Sulfonamide Antibiotics) Allergy Intermediate hives 06/13/16 Yes Vital Signs Vital Signs Date Time Temp Pulse Resp B/P Pulse Ox O2 Delivery O2 Flow Rate FiO2 06/14/16 10:17 98.6 68 20 119/67 96 Room Air 98.6 06/13/16 12:30 2.0 Lab Results Laboratory Tests Test 06/13/16 07:25 06/13/16 10:10 White Blood Count 7.6x10^3/uL (4.0-11.0) Red Blood Count 4.63x10^6/uL (3.50-5.40) Hemoglobin 14.2g/dL (12.0-15.5) Hematocrit 43.4% (36.0-47.0) Mean Corpuscular Volume 94fL (79-100) Mean Corpuscular Hemoglobin 31pg (25-35) Mean Corpuscular Hemoglobin Concent 33g/dL (31-37) Red Cell Distribution Width 13.0% (11.5-14.5) Platelet Count 299x10^3/uL (140-400) Neutrophils (%) (Auto) 53% (31-73) Lymphocytes (%) (Auto) 35% (24-48) Monocytes (%) (Auto) 10% (0-9) Eosinophils (%) (Auto) 2% (0-3) Basophils (%) (Auto) 1% (0-3) Neutrophils # (Auto) 4.0x10^3uL (1.8-7.7) Lymphocytes # (Auto) 2.6x10^3/uL (1.0-4.8) Monocytes # (Auto) 0.8x10^3/uL (0.0-1.1) Eosinophils # (Auto) 0.1x10^3/uL (0.0-0.7) Basophils # (Auto) 0.1x10^3/uL (0.0-0.2) Sodium Level 140mmol/L (136-145) Potassium Level 3.9mmol/L (3.5-5.1) Chloride Level 102mmol/L (98-107) Carbon Dioxide Level 21mmol/L (21-32) Anion Gap 17 (6-14) Blood Urea Nitrogen 11mg/dL (7-20) Creatinine 1.0mg/dL (0.6-1.0) Estimated GFR (Cockcroft-Gault) 56.0 Glucose Level 152mg/dL (70-99) Calcium Level 9.7mg/dL (8.5-10.1) Magnesium Level 1.7mg/dL (1.8-2.4) Troponin I Quantitative < 0.017ng/mL (0.000-0.055) AR-Psf-L-Type Natriuretic Peptide 97pg/mL (0-124) Triglycerides Level 145mg/dL (0-150) Cholesterol Level 218mg/dL (0-200) LDL Cholesterol, Calculated 96mg/dL (0-100) VLDL Cholesterol, Calculated 29mg/dL (0-40) HDL Cholesterol 93mg/dL (40-60) Cholesterol/HDL Ratio 2.3 Thyroid Stimulating Hormone (TSH) 2.759uIU/mL (0.358-3.74) Nasal Screen MRSA (PCR) Negative (Negative) Brief Hospital Course Ms. Thorne is a 61 old [sex] who presented with [ ] Very plaant 61 y/o female with no significant past medical hx, felt her heart racing, no real CP. Went to ER found to have HR as high as 200s, initially got adenosine for SVT which did not resolve, then assessed to have atrial fib RVR , started on cardizem gtt at ER, seen by cards and initially had transthoracic echo which was ok, eventually had PAULO today all in the last 6 hrs and no clot detected hence electrically cardioverted and is now NSR at70s with cardizem gtt only at 5 mgs in ICU and feeling much better and pleased with her course and rapid action of cards. Mag slightly low 1.7 - I have ordered replacement, TSh is normal,. Never happened before, not heavy caffeine drinker. at bedside Has some left knee swelling and bruising after a fall during weekend - xray first prior to dc today Discharge Information Condition at Discharge: Improved, Stable Disposition/Orders: D/C to Home Scheduled Apixaban (Eliquis) 5 MG PO BID Citalopram Hydrobromide (Celexa) 1 TAB PO DAILY (Reported) Ibuprofen (Ibuprofen) 800 MG PO BID (Reported) Metoprolol Succinate (Metoprolol Succinate ( Xl )) 1 TAB PO DAILY Omeprazole (Omeprazole) 1 CAP PO DAILY (Reported) Simvastatin (Simvastatin) 1 TAB PO QHS (Reported) Discontinued Medications Lisinopril (Lisinopril) 1 TAB PO DAILY (Reported) JOVANA WEINER MD Jun 14, 2016 12:43
--- NOTE | 2016-06-14 14:03 | RAD ---
Portable left knee, 2 views, 06/14/2016: History: Fall, pain and swelling There is moderate narrowing of the knee joint with subchondral sclerosis and spurring, most prominent in the lateral compartment. There are moderate degenerative changes at the patellofemoral articulation. No acute fracture or dislocation is identified. A small joint effusion appears to be present. IMPRESSION: 1. Moderately severe degenerative change. 2. No acute bony abnormality is detected.
--- NOTE | 2016-06-14 17:15 | CARD ---
APPROVED REPORT EXAM: Transesophageal echocardiogram with color flow Doppler and Synchronized Cardioversion. INDICATION Atrial Fibrillation Reason For Test : Rule out cardiac source of emboli. PROCEDURE After obtaining informed consent, patient underwent transesophageal echo in the PACU. Type of Sedation : General Anesthesia Sedation was provided by anesthesiologist, see EMR for medications administered. Transesophageal probe was inserted and advanced into esophagus by Talat Melgar MD. The PAULO was performed without complications. Synchronized Cardioversion attempted: Successful Synchronized Cardioversion acheived with 200 Joules after 1 attempt(s). Rhythm following Synchronized Cardioversion: Normal Sinus Rhythm Throughout the procedure, the blood pressure, pulse oximetry, cardiac rhythm, and rate were monitored . The patient tolerated the procedure without adverse effects. Recovery from conscious sedation was une ventful and vital signs were stable. LEFT VENTRICLE The left ventricle is normal size. There is mild concentric left ventricular hypertrophy. The Ejectio n Fraction is 60-65%. The left ventricular systolic function is normal and the ejection fraction is w ithin normal range. There is normal LV segmental wall motion. RIGHT VENTRICLE The right ventricle is normal size. There is normal right ventricular wall thickness. The right ventr icular systolic function is normal. ATRIA The left atrium is mildly dilated. The right atrium size is normal. There is no thrombus noted in the left atrial appendage. AORTIC VALVE The aortic valve is normal in structure and function. Doppler and Color Flow revealed no significant aortic regurgitation. There is no significant aortic valvular stenosis. MITRAL VALVE There is no evidence of mitral valve prolapse. There is no mitral valve stenosis. Doppler and Color F low revealed mild mitral regurgitation. TRICUSPID VALVE Doppler and Color Flow revealed trace tricuspid regurgitation. There is no pulmonary hypertension. PULMONIC VALVE Doppler and Color Flow revealed no pulmonic valvular regurgitation. There is no pulmonic valvular veronica nosis. GREAT VESSELS The aortic root is normal in size. The ascending aorta is normal in size. Critical Notification Critical Value: No <Conclusion> The Ejection Fraction is 60-65%. The left ventricular systolic function is normal and the ejection fr action is within normal range. There is no thrombus noted in the left atrial appendage. Successful CVN to SR.
== END 2016-06-14 13:00 | disposition home or self-care (01) | DRG 310 ==
LOC: ER 07:10 → 1 WEST ICU 07:35 → CVICU 22:30
PROVIDERS: ADMIT Internal Medicine; ATTEND Internal Medicine
PROC: 5A2204Z Restoration of Cardiac Rhythm, Single (ICD-10-PCS; principal; 2016-06-13)
DX: I48.1 Persistent atrial fibrillation (principal); I10 Essential (primary) hypertension; E83.42 Hypomagnesemia; E78.5 Hyperlipidemia, unspecified; E78.00 Pure hypercholesterolemia, unspecified; K21.9 Gastro-esophageal reflux disease without esophagitis; Z96.651 Presence of right artificial knee joint; F32.9 Major depressive disorder, single episode, unspecified; M19.90 Unspecified osteoarthritis, unspecified site; Z88.2 Allergy status to sulfonamides; Z82.49 Family history of ischemic heart disease and other diseases of the circulatory system
CPT/HCPCS: 71010; 73560; 80048; 80061; 83735; 83880; 84443; 84484; 85027; 87641; 93005; 93306; 93312; 93325; 96365; 96366; 96375; 96376; J0153; J1160; J1650; J2704; J3490; J7030; J7060; 99291-25

== ENCOUNTER → 2016-11-13 | Outpatient (CLI) | payer BC ==
[~2016-11-13] MED LIST: APIX5TAB PO; CITA40TA12 PO; IBUP800T19 PO; LISI-334 PO; METO25TA9 PO; OMEP40CA5 PO; SIMV40TA3 PO
== END | disposition home or self-care (01) ==
LOC: LAB 08:11
PROVIDERS: ATTEND Orthopaedic Surgery Adult Reconstructive Orthopaedic Surgery
DX: M25.551 Pain in right hip (principal)
CPT/HCPCS: 36415; 85651; 86140

== ENCOUNTER → 2019-03-14 | Outpatient (CLI) | payer BC ==
[~2019-03-14] MED LIST changes: +METO-239 PO; -METO25TA9 PO; +OMEP40CA45 PO; -OMEP40CA5 PO; +SIMV40TA18 PO; -SIMV40TA3 PO
--- NOTE | 2019-03-14 10:18 | CARD ---
MR#: [id number] Date of Study: 03/14/2019 Ordering Physician: INA SPEAR, Referring Physician: INA SPEAR, Tech: Violetta Sykes APPROVED REPORT EXAM: Two-dimensional and M-mode echocardiogram with Doppler and color Doppler. Other Information Quality : AverageHR: 97bpm INDICATION PAF 2D DIMENSIONS RVDd2.8 (2.9-3.5cm)Left Atrium(2D)3.5 (1.6-4.0cm) IVSd1.3 (0.7-1.1cm)Aortic Root(2D)2.4 (2.0-3.7cm) LVDd4.1 (3.9-5.9cm)LVOT Diameter2.1 (1.8-2.4cm) PWd0.9 (0.7-1.1cm)LVDs1.8 (2.5-4.0cm) FS (%) 56.7 %SV64.8 ml Aortic Valve AoV Peak Hebert.198.7cm/sAoV VTI34.2cm AO Peak GR.15.8mmHgLVOT Peak Hebert.148.3cm/s AO Mean GR.9mmHgAVA (VMAX)2.51cm2 Mitral Valve MV E Jpnlgntl18.7cm/sMV E Peak Gr.7mmHg MV DECEL [id number] A Bmpqejxr080.6cm/s MV E Mean Gr.3mmHgE/A Ratio0.6 Pulmonary Valve PV Peak Nuthkbrt091.6cm/s Tricuspid Valve TR P. [id number]/sRAP [id number] TR Peak Gr.29ziSkOGYL88fzOh Pulmonary Vein S1 Dhduacij61.3cm/sD2 Quntvvfv75.4cm/s LEFT VENTRICLE The left ventricle is normal size. There is mild septal left ventricular hypertrophy. The left ventri cular systolic function is normal and the ejection fraction is within normal range. The Ejection Frac tion is 60-65%. There is normal LV segmental wall motion. Transmitral Doppler flow pattern is Grade I -abnormal relaxation pattern. RIGHT VENTRICLE The right ventricle cavity is mildly decreased. The right ventricular systolic function is normal. ATRIA The left atrium size is normal. The right atrium size is normal. The interatrial septum is intact wit h no evidence for an atrial septal defect or patent foramen ovale as noted on 2-D or Doppler imaging. AORTIC VALVE The aortic valve is thickened but opens well. Doppler and Color Flow revealed no significant aortic r egurgitation. There is no significant aortic valvular stenosis. MITRAL VALVE The mitral valve is thickened but opens well. There is no evidence of mitral valve prolapse. There is no mitral valve stenosis. Doppler and Color-flow revealed trace mitral regurgitation. TRICUSPID VALVE The tricuspid valve is normal in structure and function. Doppler and Color Flow revealed mild tricusp id regurgitation with an estimated PAP of 40 mmHg. PULMONIC VALVE The pulmonic valve is not well visualized. Doppler and Color Flow revealed no pulmonic valvular regur gitation. GREAT VESSELS The aortic root is normal in size. The ascending aorta is normal in size. The IVC is borderline dilat ed and collapses >50% with inspiration. PERICARDIAL EFFUSION There is no pleural effusion. There is no evidence of significant pericardial effusion. Critical Notification Critical Value: No <Conclusion> The left ventricle is normal size. The left ventricular systolic function is normal and the ejection fraction is within normal range. The Ejection Fraction is 60-65%. Doppler and Color Flow revealed no significant aortic regurgitation. There is no significant aortic valvular stenosis. Doppler and Color-flow revealed trace mitral regurgitation. Doppler and Color Flow revealed mild tricuspid regurgitation with an estimated PAP of 40 mmHg. Signed by : Jose A Neely MD Electronically Approved : 03/14/2019 10:18:02
== END | disposition home or self-care (01) ==
LOC: ECHO 08:47
PROVIDERS: ATTEND Internal Medicine Cardiovascular Disease
DX: I36.1 Nonrheumatic tricuspid (valve) insufficiency (principal); I51.7 Cardiomegaly; I48.0 Paroxysmal atrial fibrillation
CPT/HCPCS: 93306

== ENCOUNTER 2020-01-18 13:38 | Emergency (ER) | payer OTHER ==
[~2020-01-18] VITALS: Ht 185.4 cm; Wt 122.7 kg
[2020-01-18] MEDS ORDERED: IV NORMAL SALINE 1000ML BAG 1,000 ML IV ONE (14:00)
[2020-01-18 14:11] LABS: BASO # 0.1 x10^3/uL (0.0-0.2); BASO % 1 % (0-3); EOS # 0.1 x10^3/uL (0.0-0.7); EOS % 2 % (0-3); HEMATOCRIT 40.5 % (36.0-47.0); LYMPH # 2.7 x10^3/uL (1.0-4.8); LYMPH % 33 % (24-48); MEAN CORPUSCULAR HEMOGLOBIN 31 pg (25-35); MEAN CORPUSCULAR HGB CONC 35 g/dL (31-37); MEAN CORPUSCULAR VOLUME 91 fL (79-100); MONO # 0.9 x10^3/uL (0.0-1.1); MONO % 11 % (0-9); NEUT # 4.3 x10^3/uL (1.8-7.7); NEUT % 53 % (31-73); PLATELET COUNT 302 x10^3/uL (140-400); RED BLOOD COUNT 4.46 x10^6/uL (3.50-5.40); WHITE BLOOD COUNT 8.2 x10^3/uL (4.0-11.0)
[2020-01-18 14:19] LABS: PROTHROMBIN TIME PATIENT 12.3 SEC (11.7-14.0)
[2020-01-18 14:22] LABS: D-DIMER 0.3 ug/mlFEU (0.00-0.50)
[2020-01-18 14:23] LABS: CALCIUM 9.7 mg/dL (8.5-10.1); CREATININE 0.7 mg/dL (0.6-1.0); GFR 83.7; POTASSIUM 4.5 mmol/L (3.5-5.1)
[2020-01-18 14:29] LABS: ALBUMIN 4.1 g/dL (3.4-5.0); ALBUMIN/GLOBULIN RATIO 1.1 (1.0-1.7); MAGNESIUM 2.3 mg/dL (1.8-2.4); TOTAL BILIRUBIN 0.3 mg/dL (0.2-1.0); TOTAL PROTEIN 7.7 g/dL (6.4-8.2)
--- NOTE | 2020-01-18 14:30 | RAD ---
EXAM: AP View of the chest DATE: 01/18/2020 1:56 PM INDICATION: Reason: CP / Spl. Instructions: / History: COMPARISON: No Prior FINDINGS: The heart is not enlarged. Mediastinal and hilar contours are normal. No focal parenchymal airspace opacity. No pleural effusion or pneumothorax. IMPRESSION: 1. No radiographic evidence for acute cardiopulmonary process. Electronically signed by: Patrick Wyatt MD (01/18/2020 2:27 PM) [id number]
--- NOTE | 2020-01-18 15:47 | PHYS DOC ---
Past Medical History Past Medical History: A-Fib, Depression, GERD, High Cholesterol, Hypertension, Other Additional Past Medical Histor: heart murmur Past Surgical History: Knee Replacement, Other Additional Past Surgical Histo: R knee, L rotator cuff Smoking Status: Never Smoker Alcohol Use: Heavy Additional Information: PT DRINKS AT LEAST 8 BEERS DAILY. Drug Use: None General Adult EDM: Chief Complaint: RAPID HEART RATE HPI: HPI: The history was obtained from the patient. Patient is a 64-year-old female with PMH atrial fibrillation, alcohol abuse who presents with a chief complaint of feelings of rapid heart rate. Patient states she has had feelings of intermittently rapid heart rate over the past 3 days. She notes today around 10 AM while at rest she began feeling like her heart was beating quickly and would not stop. Denies chest pain or shortness of breath. Denies syncope. States she drinks alcohol daily. Estimates she drinks 8 beers daily. She states that she is never experienced alcohol withdrawal before. Denies any hallucinations. Denies tremors. Denies passing out. States she does have history of A. fib requiring ablation. Denies vomiting. States she does not take blood thinners. Denies any drug or alcohol abuse today. Denies history of blood clot in legs or lungs. Patient denies any history of immobilization greater than 48 hours, recent hospitalizations, recent surgery, recent trauma, , oral contraceptive usage, hormone replacement therapy, air travel greater than 8 hours, recent infectious disease, or general deterioration of their overall condition. Review of Systems: Review of Systems: Constitutional: Denies fever or chills. [] Eyes: Denies change in visual acuity. [] HENT: Denies nasal congestion or sore throat. [] Respiratory: Denies cough or shortness of breath. [] Cardiovascular: Positive for tachycardia GI: Denies abdominal pain, nausea, vomiting, bloody stools or diarrhea. [] : Denies dysuria. [] Musculoskeletal: Denies back pain or joint pain. [] Integument: Denies rash. [] Neurologic: Denies headache, focal weakness or sensory changes. [] Endocrine: Denies polyuria or polydipsia. [] Lymphatic: Denies swollen glands. [] Psychiatric: Denies depression or anxiety. [] Heart Score: Risk Factors: Risk Factors: DM, Current or recent (<one month) smoker, HTN, HLP, family history of CAD, obesity. Risk Scores: Score 0 - 3: 2.5% MACE over next 6 weeks - Discharge Home Score 4 - 6: 20.3% MACE over next 6 weeks - Admit for Clinical Observation Score 7 - 10: 72.7% MACE over next 6 weeks - Early Invasive Strategies Current Medications: Current Medications Medications (Trade) Dose Ordered Sig/Dianna Start Time Stop Time Status Last Admin Dose Admin Sodium Chloride 1,000 ml @ 2,000 mls/hr 1X ONCE 01/18/20 14:00 01/18/20 14:29 DC 01/18/20 14:35 2,000 MLS/HR Allergies: Allergies: Allergies Coded Allergies Type Severity Reaction Last Updated Verified Sulfa (Sulfonamide Antibiotics) Allergy Intermediate hives 06/13/16 Yes Physical Exam: PE: Constitutional: Well developed, well nourished, no acute distress, non-toxic appearance. [] HENT: Normocephalic, atraumatic, bilateral external ears normal, oropharynx moist, no oral exudates, nose normal. [] Eyes: PERRLA, EOMI, conjunctiva normal, no discharge. [] Neck: Normal range of motion, no tenderness, supple, no stridor. [] Cardiovascular: Tachycardic, regular rhythm, no murmur [] Lungs & Thorax: Bilateral breath sounds clear to auscultation [] Abdomen: soft, no tenderness, no masses, no pulsatile masses. [] Skin: Warm, dry, no erythema, no rash. [] Back: No tenderness, no CVA tenderness. [] Extremities: No tenderness, no cyanosis, no clubbing, ROM intact, no edema. [] Neurologic: Alert and oriented X 3, normal motor function, normal sensory function, no focal deficits noted. [] Psychologic: Affect normal, judgement normal, mood normal. [] Current Patient Data: Labs: Laboratory Tests Test 01/18/20 13:50 White Blood Count 8.2 x10^3/uL (4.0-11.0) Red Blood Count 4.46 x10^6/uL (3.50-5.40) Hemoglobin 14.0 g/dL (12.0-15.5) Hematocrit 40.5 % (36.0-47.0) Mean Corpuscular Volume 91 fL (79-100) Mean Corpuscular Hemoglobin 31 pg (25-35) Mean Corpuscular Hemoglobin Concent 35 g/dL (31-37) Red Cell Distribution Width 14.0 % (11.5-14.5) Platelet Count 302 x10^3/uL (140-400) Neutrophils (%) (Auto) 53 % (31-73) Lymphocytes (%) (Auto) 33 % (24-48) Monocytes (%) (Auto) 11 % (0-9) H Eosinophils (%) (Auto) 2 % (0-3) Basophils (%) (Auto) 1 % (0-3) Neutrophils # (Auto) 4.3 x10^3/uL (1.8-7.7) Lymphocytes # (Auto) 2.7 x10^3/uL (1.0-4.8) Monocytes # (Auto) 0.9 x10^3/uL (0.0-1.1) Eosinophils # (Auto) 0.1 x10^3/uL (0.0-0.7) Basophils # (Auto) 0.1 x10^3/uL (0.0-0.2) Prothrombin Time 12.3 SEC (11.7-14.0) Prothrombin Time INR 1.0 (0.8-1.1) D-Dimer (Alysa) 0.30 ug/mlFEU (0.00-0.50) Sodium Level 137 mmol/L (136-145) Potassium Level 4.5 mmol/L (3.5-5.1) Chloride Level 100 mmol/L (98-107) Carbon Dioxide Level 27 mmol/L (21-32) Anion Gap 10 (6-14) Blood Urea Nitrogen 13 mg/dL (7-20) Creatinine 0.7 mg/dL (0.6-1.0) Estimated GFR (Cockcroft-Gault) 83.7 BUN/Creatinine Ratio 19 (6-20) Glucose Level 115 mg/dL (70-99) H Calcium Level 9.7 mg/dL (8.5-10.1) Magnesium Level 2.3 mg/dL (1.8-2.4) Total Bilirubin 0.3 mg/dL (0.2-1.0) Aspartate Amino Transferase (AST) 23 U/L (15-37) Alanine Aminotransferase (ALT) 28 U/L (14-59) Alkaline Phosphatase 83 U/L (46-116) Total Protein 7.7 g/dL (6.4-8.2) Albumin 4.1 g/dL (3.4-5.0) Albumin/Globulin Ratio 1.1 (1.0-1.7) Lipase 159 U/L (73-393) Ethyl Alcohol Level < 10 mg/dL (0-10) Laboratory Tests 01/18/20 13:50 Laboratory Tests 01/18/20 13:50 Vital Signs: Vital Signs Date Time Temp Pulse Resp B/P (MAP) Pulse Ox O2 Delivery O2 Flow Rate FiO2 01/18/20 13:40 145 18 168/97 (120) 98 Room Air EKG: EKG: [] EKG consistent with sinus tachycardia. Ventricular rate of 131 bpm. Left axis noted. Intervals normal. Flipped T waves noted in aVL. Slight ST depression in lead V6. EKG#2 1546: EKG consistent with normal sinus rhythm. Ventricular rate of 77 bpm. Left axis noted. Normals normal. No acute ischemic changes appreciated. Radiology/Procedures: Radiology/Procedures: [facility] [address] [place] [address] IMAGING REPORT Signed PATIENT: SHIN GOLDENOUNT: [id number] : 1955 LOCATION: ER AGE: 64 SEX: F EXAM STATUS: PRE ER ORD. PHYSICIAN: ARMANDO OCAMPO DO REASON: CP PROCEDURE: CHEST AP ONLY EXAM: AP View of the chest DATE: 01/18/2020 1:56 PM INDICATION: Reason: CP / Spl. Instructions: / History: COMPARISON: No Prior FINDINGS: The heart is not enlarged. Mediastinal and hilar contours are normal. No focal parenchymal airspace opacity. No pleural effusion or pneumothorax. IMPRESSION: 1. No radiographic evidence for acute cardiopulmonary process. Electronically signed by: Patrick Solano MD (01/18/2020 2:27 PM) [id number] DICTATED and SIGNED BY: PATRICK SOLANO MD DATE: 01/18/20 1427 [] Course & Med Decision Making: Course & Med Decision Making Pertinent Labs and Imaging studies reviewed. (See chart for details) [] Patient is a overall well-appearing 64-year-old female presents with chief complaint of feelings of rapid heart beat. Initial heart rate noted to be 131. EKG consistent with sinus tachycardia. Basic labs were obtained and were grossly unremarkable. Troponin negative. D-dimer negative. CT PE study will be deferred. After 2 L normal saline bolus patient's heart rate has improved to approximately 60 bpm. EKG consistent with normal sinus rhythm. At this time the exact cause of her tachycardia is unclear. However I do suspect this could related to dehydration versus her alcohol consumption. I did discuss results of labs and imaging in great detail with the patient and . Patient is requesting discharge home. Overall I do feel this is reasonable. She was instructed to follow-up with her primary care physician in the next 2 to 3 days. Return precautions discussed and understood. She remains pain-free at this time. Stable for discharge home. [place] Disclaimer: Pamela Disclaimer: This electronic medical record was generated, in whole or in part, using a voice recognition dictation system. Departure Departure Impression: Primary Impression: Palpitations Additional Impression: Alcohol abuse Disposition: 01 HOME, SELF-CARE Condition: STABLE Referrals: LAWRENCE BARAJAS (PCP) Patient Instructions: Nonspecific Tachycardia Additional Instructions: Please follow-up with your primary care physician in the next 2 to 3 days. Justicifation of Admission Dx: Justifications for Admission: Justification of Admission Dx: N/A ARMANDO OCAMPO DO Jan 18, 2020 15:47
[2020-01-18 15:51] VITALS: BP 152/103
== END 2020-01-18 16:09 | disposition home or self-care (01) ==
LOC: ER 13:38
DX: R00.2 Palpitations (principal); F10.10 Alcohol abuse, uncomplicated; I48.20 Chronic atrial fibrillation, unspecified; F32.9 Major depressive disorder, single episode, unspecified; K21.9 Gastro-esophageal reflux disease without esophagitis; E78.00 Pure hypercholesterolemia, unspecified; I10 Essential (primary) hypertension; Z98.890 Other specified postprocedural states; Z88.2 Allergy status to sulfonamides
CPT/HCPCS: 36415; 71045; 80053; 83690; 83735; 85025; 85379; 85610; 93005; 96360; 99285; G0480; J7030

== ENCOUNTER → 2020-12-16 | Outpatient (CLI) | payer OTHER ==
[~2020-12-16] MED LIST changes: -LISI-334 PO; +LISI20TA18 PO; -OMEP40CA45 PO; +OMEP40CA7 PO
--- NOTE | 2020-12-16 16:39 | CARD ---
MR#: [id number] Date of Study: 12/16/2020 Ordering Physician: INA SPEAR, Referring Physician: INA SPEAR, Tech: Blas Martinez [facility] APPROVED REPORT EXAM: Two-dimensional and M-mode echocardiogram with Doppler and color Doppler. Other Information Quality : AverageHR: 78bpm Rhythm : NSR INDICATION Atrial Fibrillation 2D DIMENSIONS Left Atrium(2D)3.6 (1.6-4.0cm)IVSd0.9 (0.7-1.1cm) Aortic Root(2D)3.2 (2.0-3.7cm)LVDd4.4 (3.9-5.9cm) LVOT Diameter2.2 (1.8-2.4cm)PWd0.9 (0.7-1.1cm) LVDs2.0 (2.5-4.0cm)FS (%) 54.2 % SV72.9 mlLVEF(%)85.2 (>50%) Aortic Valve AoV Peak Hebert.156.0cm/sAoV VTI32.8cm AO Peak GR.9.7mmHgLVOT Peak Hebert.116.4cm/s AO Mean GR.6mmHgAVA (VMAX)2.74cm2 Mitral Valve MV E Lyqfdmgo84.9cm/sMV E Peak Gr.5mmHg MV DECEL [id number] A Tbtnujdn962.1cm/s MV E Mean Gr.2mmHgE/A Ratio0.8 Pulmonary Valve PV Peak Yneyudcj245.4cm/s Tricuspid Valve TR P. Dpcmolce776mz/sTR Peak Gr.25mmHg Pulmonary Vein S1 Njknxbms32.0cm/sD2 Oaaskimy55.9cm/s LEFT VENTRICLE The left ventricle is normal size. There is normal left ventricular wall thickness. The left ventricu lar systolic function is normal and the ejection fraction is within normal range. EF 55% There is nor mal LV segmental wall motion. Tissue Doppler imaging reveals mild left ventricular diastolic dysfunct ion. RIGHT VENTRICLE The right ventricle is normal size. There is normal right ventricular wall thickness. The right ventr icular systolic function is normal. ATRIA The left atrium is borderline dilated. The right atrium size is normal. The interatrial septum is int act with no evidence for an atrial septal defect or patent foramen ovale as noted on 2-D or Doppler i maging. AORTIC VALVE The aortic valve is normal in structure and function. Doppler and Color Flow revealed no significant aortic regurgitation. There is no significant aortic valvular stenosis. There is no aortic valvular v egetation. MITRAL VALVE The mitral valve is normal in structure and function. There is no evidence of mitral valve prolapse. There is no mitral valve stenosis. Doppler and Color Flow revealed no mitral valve regurgitation note d. TRICUSPID VALVE The tricuspid valve is normal in structure and function. Doppler and Color Flow revealed trace to mil d tricuspid regurgitation. The PA pressure was estimated at 24 mmHg. There is no tricuspid valve prol apse or vegetation. There is no tricuspid valve stenosis. PULMONIC VALVE Doppler and Color Flow revealed no pulmonic valvular regurgitation. There is no pulmonic valvular veronica nosis. GREAT VESSELS The aortic root is normal in size. The ascending aorta is normal in size. The IVC is normal in size a nd collapses >50% with inspiration. PERICARDIAL EFFUSION There is no pleural effusion. There is no evidence of significant pericardial effusion. Critical Notification Critical Value: No <Conclusion> The left ventricular systolic function is normal and the ejection fraction is within normal range. EF 55% There is normal LV segmental wall motion. Signed by : Ina Spear, Electronically Approved : 12/16/2020 16:38:30
== END ==
LOC: ECHO 09:57
PROVIDERS: ATTEND Internal Medicine Cardiovascular Disease
DX: I07.1 Rheumatic tricuspid insufficiency (principal); I48.91 Unspecified atrial fibrillation
CPT/HCPCS: 93306